=== PATIENT | female | born 1930 | race African-American/Black ===

== ENCOUNTER 2019-04-26 19:34 | Inpatient (IN) ==
[2019-04-26 20:15] LABS: BASO# 0.02 X1000 (0.0-0.2); BASO% 0.2 % (0.0-0.8); EOS# 0.48 X1000 (0.0-0.7); HEMATOCRIT 41.1 % (37.0-47.0); HEMOGLOBIN 12.8 g/dL (12.0-16.0); IMM GRAN# 0.03 X1000 (0.0-0.04); IMM GRAN% 0.4 % (0.0-0.5); LYMPH# 1.19 X1000 (1.2-3.4); LYMPH% 14.8 % (20.5-51.1); MCH 29.6 PG (27-31); MCHC 31.1 g/dL (33-37); MCV 94.9 FL (81-99); MONO# 0.78 X1000 (0.11-0.59); MONO% 9.7 % (1.7-9.3); MPV 11.2 FL (7.4-10.4); NEUT# 5.56 X1000 (1.4-6.5); NEUT% 68.9 % (42.2-75.2); PLT 233 X1000 (130-400); RBC 4.33 XMIL (4.2-5.4); RDW 13.5 % (11.5-14.5); WBC 8.06 X1000 (4.8-10.8)
[2019-04-26] MEDS ORDERED: DUONEB (A & A) INH ONE ×2 (20:28→23:59)
[2019-04-26 20:41] LABS: URINE SOURCE CATH
[2019-04-26 20:47] LABS: UR EPITHELIAL CELLS <10 /HPF (<10); URINE BACTERIA NEGATIVE /HPF; URINE RBC <10 /HPF (<10); URINE WBC <10 /HPF (<10)
[2019-04-26 20:48] LABS: AGAP 10; ALBUMIN 3.5 g/dL (3.5-5.0); ALKALINE PHOSPHATASE 60 U/L (32-104); BUN 11 mg/dL (8-22); CALCIUM 9.7 mg/dL (8.8-10.2); CHLORIDE 102 mmol/L (98-107); COSMO 283; CREATININE 0.8 mg/dL (0.5-0.9); ESTIMATED GFR > 60; GLUCOSE 115 mg/dL (70-104); GOT 19 U/L (10-30); GPT 10 U/L (10-36); POTASSIUM 4.3 mmol/L (3.5-5.1); SODIUM 142 mmol/L (136-145); TCO2 30 mmol/L (25-35); TOTAL PROTEIN 6.9 g/dL (6.3-8.3)
[2019-04-26 21:00] LABS: BILIRUBIN URINE NEGATIVE (NEGATIVE); BLOOD URINE NEGATIVE (NEGATIVE); COLOR YELLOW; GLUCOSE URINE NEGATIVE (NEGATIVE); KETONE URINE NEGATIVE (NEGATIVE); LEUKOCYTES URINE NEGATIVE (NEGATIVE); NITRITE URINE NEGATIVE (NEGATIVE); PH URINE 5.5; PROTEIN URINE NEGATIVE (NEGATIVE); SP GRAVITY URINE 1.019; TURBIDITY URINE CLEAR (CLEAR); UROBILINOGEN URINE NORMAL (NORMAL)
--- NOTE | 2019-04-26 21:12 | EKG Report ---
Test Performed on : 04/26/2019 9:13:32 PM Test Reason : cough, hemoptysis. Blood Pressure : / mmHG Vent. Rate : 104 BPM Atrial Rate : 104 BPM P-R Int : 138 ms QRS Dur : 068 ms QT Int : 360 ms P-R-T Axes : 032 043 045 degrees QTc Int : 473 ms Sinus tachycardia. Low voltage QRS Borderline ECG No previous ECGs available Unconfirmed Result
--- NOTE | 2019-04-26 21:47 | Diag Imaging Result Doc PS360 ---
EXAM: CHEST-1 VIEW INDICATION: cough, hemoptysis TECHNIQUE: One view COMPARISON: 04/08/2019 FINDINGS: There is stable mild interstitial thickening at the upper lung zones and the right lung base, possibly chronic. There is no discrete pleural fluid collection or pneumothorax. The cardiomediastinal silhouette and central vasculature are grossly unremarkable. IMPRESSION: Stable mild interstitial thickening bilaterally. Electronically signed by August Dutton 04/26/2019 9:45 PM
--- NOTE | 2019-04-26 22:23 | Diag Imaging Result Doc PS360 ---
EXAM: CT HEAD W/O CONTRAST INDICATION: recent bleed. dec loc. TECHNIQUE: This exam was performed using automated exposure control, adjustment of mA or kV according to patient size, and/or use of iterative reconstruction technique. COMPARISON: 04/08/2019 FINDINGS: There is an aging subacute left frontal lobe parenchymal hematoma. The amount of acute blood has decreased since the previous study. However, there is slightly more associated vasogenic edema causing sulcal effacement and minimal effacement of the anterior horn of the left lateral ventricle. There is no hydrocephalus. There is no significant midline shift. No discrete intracranial mass is identified. The surrounding soft tissues and bony structures are essentially unremarkable. IMPRESSION: Aging subacute left frontal lobe parenchymal hematoma. Although there is less hyperdense blood as compared to the previous study, there is slightly more associated surrounding vasogenic edema. Electronically signed by August Dutton 04/26/2019 10:20 PM
[2019-04-27] MEDS ORDERED: LEVAQUIN 750 MG/D5W 750 MG/150 ML IVPB IV ONE (00:02)
--- NOTE | 2019-04-27 00:06 | PROVIDER DOCUMENTATION ---
This chart was entered by Grecia Miranda Scribe, acting as scribe for Ashlyn Neely DO. HPI-General Adult - General Chief Complaint: Cough Stated Complaint: Coughing up Blood Time Seen by Provider: 04/26/19 19:46 Source: patient, family Allergies/Adverse Reactions: Patient Allergies Allergy/AdvReac Type Severity Reaction Status Date / Time No Known Allergies Allergy Verified 04/08/19 21:14 Home Medications: Home Medication List Medication Instructions Recorded Confirmed Last Taken Type Albuterol Sulfate [Ventolin Hfa] 60 puff INHALATION 3-4XDAY PRN PRN 04/08/19 04/26/19 Unknown History Brinzolamide/Brimonidine Tart 8 ml OPHTHALMIC (EYE) BID 04/08/19 04/26/19 Unknown History [Simbrinza 1%-0.2% Eye Drops] Olopatadine 0.2% Oph Solution 1 drp BOTH EYES DAILY 04/08/19 04/26/19 Unknown History [Pataday 0.2% Oph Solution] Travoprost [Travatan Z] 5 ml OPHTHALMIC (EYE) QHS 04/08/19 04/26/19 Unknown History Levetiracetam [Keppra] 500 mg PO BID 04/26/19 04/26/19 Unknown History Pantoprazole Sodium 40 mg PO DAILY 04/26/19 04/26/19 Unknown History - History of Present Illness -Gen Adult Nature of Presenting Problems: pt is a 88 yr old female presenting via EMS from snf with 1 day complaint of cough, chest pain, decreased responsiveness and blood tinged sputum. pt recently admitted at [facility] with subdural bleed, UTI and pneumonia, pt dx with lung cancer at that time Location of Pain/Injury: reports: chest Pain Radiation: reports: no radiation Severity: reports: mild Onset/Duration: reports: last night Timing: reports: still present Context/Activities at Onset: reports: light activity Modifying Factors: improves with: nothing Associated Symptoms: reports: chest pain, cough, fatigue, shortness of breath, weakness. denies: fever/chills, headaches, sinus congestion/drainage, nausea Similar Symptoms Previously?: Yes Recently seen or treated by another doctor?: Yes Review of Systems - Adult - REVIEW OF SYSTEMS - ADULT Constitutional: denies: chills, fever Eyes: reports: no symptoms reported Ears, Nose, Mouth & Throat: reports: no symptoms reported Cardiovascular: reports: chest pain. denies: palpitations, syncope Respiratory: reports: cough, hemoptysis, shortness of breath, wheezing Gastrointestinal: denies: diarrhea, nausea, vomiting Genitourinary: reports: no symptoms reported Musculoskeletal: denies: back pain Integumentary: reports: no symptoms reported Neurological: denies: dizziness/vertigo, headache/migraines, syncope Psychiatric: reports: no symptoms reported Endocrine: reports: no symptoms reported Hematologic/Lymphatic: reports: no symptoms reported Allergic/Immunologic: reports: no symptoms reported All Other Systems: Reviewed and Negative Past History - Adult - PAST MEDICAL HISTORY-ADULT Review of Records: reports: Old Records Reviewed, Nursing Assessment Review, Medications Reviewed, Social history reviewed & non-contributory. Major Childhood Illnesses: reports: denies history Cardiovascular: reports: denies history Respiratory: reports: denies history Gastrointestinal: reports: denies history Obstetrical/Gynecological: reports: denies history Genitourinary: reports: denies history Musculoskeletal: reports: denies history Neurological: reports: denies history Endocrine/Immune: reports: denies history Other Conditions: reports: denies history - IMMUNIZATION STATUS Childhood Immunizations: See Nurse Assessment Flu Vaccine: See Nurse Assessment - FAMILY HISTORY Family History: reviewed, not pertinent - SOCIAL HISTORY Smoking: non-smoker Substance Use: denies Living Situation: care facility Physical Exam-General - PHYSICAL EXAM-ADULT Initial Vital Signs Reviewed: Yes - CONSTITUTIONAL General Appearance: no apparent distress, other (sommulent, easily aroused) - EYES Eyes: PERRL/EOMI - HEAD, EARS, NOSE, MOUTH & THROAT HENMT: normocephalic/atraumatic, moist mucous membranes - NECK Neck: non-tender, full range of motion, supple, normal inspection - RESPIRATORY Respiratory: chest non-tender, decreased breath sounds (bilaterally), wheezing (diffuse) - CARDIOVASCULAR Cardiovascular: normal peripheral pulses, tachycardia - GASTROINTESTINAL (ABDOMEN) Abdominal Exam: normal bowel sounds, non tender, soft - LYMPHATIC Lymphatic: no adenopathy - MUSCULOSKELETAL Back Exam: normal inspection, no CVA tenderness, no vertebral tenderness Extremity: normal range of motion, non-tender, normal gait, normal inspection - SKIN Integumentary: normal color, normal turgor, warm/dry - NEUROLOGIC Neurologic: grossly normal, no motor/sensory deficits - PSYCHIATRIC Psych/Mental Status: normal mood/affect Progress - PLAN OF CARE/RESULTS Progress/Plan/Lab Results: Vital Signs - 8 hr 04/26/19 19:44 Temperature 99.1 F Pulse Rate 110 H Respiratory Rate 26 H Blood Pressure 119/72 O2 Sat by Pulse Oximetry 94 L Laboratory Results - last 24 hr 04/26/19 20:04 WBC 8.06 RBC 4.33 Hgb 12.8 Hct 41.1 MCV 94.9 MCH 29.6 MCHC 31.1 L RDW Std Deviation 13.5 Plt Count 233 MPV 11.2 H Immature Gran % (Auto) 0.4 Neut % (Auto) 68.9 Lymph % (Auto) 14.8 L [place] % (Auto) 9.7 H Eos % (Auto) 6.0 Baso % (Auto) 0.2 Immature Gran # (Auto) 0.03 Neut # (Auto) 5.56 Lymph # (Auto) 1.19 L [place] # (Auto) 0.78 H Eos # (Auto) 0.48 Baso # (Auto) 0.02 Orders Category Date Time Status CHEST-1 VIEW [RAD] Stat Exams 04/26/19 19:56 Ordered BLOOD CULTURE [BLDCUL] Stat Lab 04/26/19 19:56 Uncollected CBC WITH ELECTRONIC DIFF [HEME] Stat Lab 04/26/19 20:04 Completed COMPREHENSIVE METABOLIC PANEL [CHEM] Stat Lab 04/26/19 20:04 Received LACTATE, PLASMA [CHEM] Stat Lab 04/26/19 20:04 Received PRO B-NATRIURETIC PEPTIDE Stat Lab 04/26/19 20:04 Received TROPONIN T Stat Lab 04/26/19 20:04 Received UA NIMS W/REFLEX CULT [URINALYSIS] Stat Lab 04/26/19 19:58 Uncollected EKG [EKG] Stat Ther 04/26/19 19:56 Ordered Clinically stable under my care. Considerations include but not limited to: PNA, PE, worsening lung CA. Due to her recent SDH a CT head was obtained. There does not appear to be increased size of the hemorrhage, but possible increased edema since her original CT here. She spend a significant amt of time inpatient at [facility] prior to rehab and it was during that visit that her lung CA was diagnosed. The pt and her family wish to proceed aggressively with treatment of her lung CA at this point. We discussed admission vs discharge on oral abx. They prefer admission. She was treated with Levaquin for healthcare associated PNA. Admitted to hospitalist service, Dr Barajas. CT findings consistent with possible pna B. She has multiple malignant lesions bilaterally. Result Diagrams: 04/26/19 20:04 04/26/19 20:04 - EKG 1 Time of EKG reading by physician:: 21:13 EKG Read and Signed by:: Ashlyn Neely EKG Interpretation (*Must complete 3 of following elements*): Normal Rate: 104 Rhythm: sinus tach [place]: normal QRS: other (low voltage QRS) VA Interval: normal ST Wave: normal Departure - Departure Date of Disposition Decision: 04/26/19 Time of Disposition Decision: 23:59 DIAGNOSIS: Chronic subdural hematoma, Cough with hemoptysis Lung cancer Qualifiers: Laterality: unspecified laterality Lung location: unspecified part of lung Qualified Code(s): C34.90 - Malignant neoplasm of unspecified part of unspecified bronchus or lung Pneumonia Qualifiers: Pneumonia type: due to unspecified organism Laterality: unspecified laterality Lung location: unspecified part of lung Qualified Code(s): J18.9 - Pneumonia, unspecified organism Disposition: ADMITTED INPATIENT 09 Certified Medical Emergency: Emergent Condition: Fair - Critical Care Note This patient required my direct & personal management of CC.: No Attestation - Physician/ ADARSH Attestation The physician spent face to face time with patient:: Yes Advanced Practice Provider documentation review:: Supervising physician onsite and consulted in the evaluation and care of this patient. The physician did have a face to face encounter with the patient. This chart was documented by the indicated scribe, (Grecia Miranda Scribe) and accurately reflects the services I performed and decisions made by me, Ashlyn Neely, DO, as attested by the provider's signature.
--- NOTE | 2019-04-27 07:55 | Diag Imaging Result Doc PS360 ---
EXAM: CT ANGIOGRAM PULMONARY ARTERIES - 04/26/2019 HISTORY: difficulty breathing, left arm swollen TECHNIQUE: CT angiogram pulmonary arteries with intravenous contrast. Axial, 2-D coronal MIP, and 3-D MIP images are obtained. COMPARISON: 04/26/2019 chest radiograph FINDINGS: There are no filling defects identified in the pulmonary arteries. There is no indication of aortic dissection. There is tortuosity of the descending aorta noted. There is approximately 3.5 x 1.9 cm in axial dimensions soft tissue mass with spiculated margins at the suprahilar left upper lobe. This extends to the superior left hilum and abuts the major fissure. There are scattered subcentimeter nodular lesions bilaterally. These findings are suspicious for malignancy. There is a tiny right pleural effusion. There are some bronchial wall thickening which may relate to proctitis. There is no consolidation or pneumothorax identified. There are no abnormally enlarged mediastinal lymph nodes identified. IMPRESSION: No evidence of pulmonary embolism. Spiculated left upper lobe mass which is suspicious for malignancy. Scattered small pulmonary nodules which are suspicious for metastases. Possible bronchitis. No discrete pneumonia. The on-call radiologist provided preliminary results at 11:09 PM on 04/26/2019. Electronically signed by Kannan Beaulieu 04/27/2019 7:53 AM
[2019-04-27] MEDS ORDERED: SALINE LOCK IV FLUID XX ONE (09:20)
[2019-04-27] MEDS ORDERED: ZOFRAN IV PRN (09:20)
[2019-04-27] MEDS ORDERED: DUONEB (A & A) INH PRN (09:23)
[2019-04-27] MEDS: DUONEB (A & A) INH SCH ×3 (10:54→19:54)
[2019-04-27 12:04] LABS: URINE SOURCE CATH
[2019-04-27 12:06] LABS: BILIRUBIN URINE NEGATIVE (NEGATIVE); BLOOD URINE NEGATIVE (NEGATIVE); COLOR YELLOW; GLUCOSE URINE NEGATIVE (NEGATIVE); KETONE URINE NEGATIVE (NEGATIVE); LEUKOCYTES URINE NEGATIVE (NEGATIVE); NITRITE URINE NEGATIVE (NEGATIVE); PROTEIN URINE TRACE mg/dL (NEGATIVE); TURBIDITY URINE CLEAR (CLEAR); UROBILINOGEN URINE NORMAL (NORMAL)
[2019-04-27 12:07] LABS: UR EPITHELIAL CELLS <10 /HPF (<10); URINE BACTERIA NEGATIVE /HPF; URINE RBC <10 /HPF (<10); URINE WBC <10 /HPF (<10)
[2019-04-27 12:41] LABS: SP GRAVITY URINE > 1.050
--- NOTE | 2019-04-27 13:36 | HISTORY AND PHYSICAL ---
HISTORY OF PRESENT ILLNESS: Patient presented to the hospital with increased cough, congestion, and some hemoptysis. She apparently was in the hospital from April 08 and just discharged on the to rehab from [facility] where she had a subdural hematoma. She was also diagnosed with lung cancer but has not received any treatment for this. PLAN: We are going to admit her to the hospital, place her on antibiotics, oxygen, breathing treatments and will follow. Certainly do not expect that she is currently strong enough nor will she likely become strong enough to attempt to treat her new diagnosis of lung cancer. cc: Renard Barajas MD
--- NOTE | 2019-04-27 14:27 | HISTORY AND PHYSICAL ---
PRIMARY CARE PROVIDER: Dr. Richard Vides. CHIEF COMPLAINT: Cough and shortness of breath. HISTORY OF PRESENT ILLNESS: Ms. 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 This was diagnosed at the [facility]. She was also diagnosed with bilateral pneumonia and a UTI. She was transferred to [facility] where she was found to have lung cancer as well. She was discharged from [facility] on the 20 of April and sent to [facility]. She reported 2 days ago she started experiencing some shortness of breath, a low-grade temp, and was having some blood tinged sputum, but no chills. No nausea, vomiting, diarrhea, constipation, chest pain, palpitations. They report they were supposed to meet with a team at [facility] to discuss their options as far as the lung cancer on Thursday. The original plan was for her to go to rehab to get stronger. She has expressed her wishes now to be a DNR level 1 at this time. Workup in the ED with a chest x-ray showed stable mild interstitial thickening bilaterally. Head CT showed an aging subacute left frontal lobe parenchymal hematoma. Pulmonary arteriogram showed no evidence of PE, but a spiculated left upper lobe mass suspicious for malignancy and scattered small pulmonary nodules suspicious for metastasis and possible bronchitis, but no discrete pneumonia. She is afebrile. Her white count is 8. Lactates are negative. Urinalysis is negative. We will admit her to the hospital and treat her for bronchitis with a palliative care consult and place an order for a DNR level 1 per patient and daughter's request at the bedside. PAST MEDICAL HISTORY: 1. Arthritis. 2. Glaucoma. 3. Asthma. 4. Hypertension. 5. Recent subdural brain bleed. PAST SURGICAL HISTORY: Eye surgery. ALLERGIES: No known drug allergies. SOCIAL HISTORY: She has a supportive daughter at bedside. She does have a granddaughter who I believe with her previous main caregiver and helps her make all of her decisions. No alcohol, tobacco, or illicit drug use. However, she was exposed to secondhand smoke. REVIEW OF SYSTEMS: Twelve-point review of systems completely negative except for those mentioned in HPI. FAMILY HISTORY: Reviewed and noncontributory. PHYSICAL EXAMINATION: VITAL SIGNS: Temperature is 98.4 degrees, heart rate 108, respirations 16, blood pressure 118/69, O2 is 100% on 1 L nasal cannula. GENERAL: Ms. Pacheco is an 88-year-old female who is lying in the bed on her left side, in no acute distress. HEENT: Atraumatic, normocephalic. PERRL. NECK: Supple. Trachea midline. CARDIOVASCULAR: S1, S2 appreciated. No murmurs, gallops, rubs noted. RESPIRATORY: Lung sounds clear bilaterally. Bilaterally decreased in the bases. GI: Soft, nontender, nondistended. Positive bowel sounds 4 quadrants. EXTREMITIES: Lower extremities were negative for edema. NEUROLOGIC: No focal deficits noted. She is awake, alert, oriented. Follows commands. Moves all extremities. Answers all questions appropriately. DIAGNOSTIC DATA: Chest x-ray: Stable mild interstitial thickening bilaterally. Head CT: Aging subacute left frontal lobe parenchymal hematoma. Pulmonary arteriogram: No evidence of PE. Spiculated left upper lobe mass which is suspicious for malignancy. Scattered small pulmonary nodules which are suspicious for metastasis. EKG: Sinus tachycardia. LABORATORY DATA: White count 6, hemoglobin and hematocrit 12 and 41, platelet count is 233,000. Sodium 142, potassium 4.3, BUN 11, creatinine 0.8, blood glucose is 115. Troponin less than 0.010. Plasma lactate 1.2. Urinalysis is negative for bacteria, negative for nitrites. IMPRESSIONS AND PLAN: 1. Bronchitis with mild asthma exacerbation. The patient has responded to breathing treatments and supplemental O2. We will continue with p.o. azithromycin, bronchodilators, and aggressive pulmonary toilet. 2. Recent diagnosis of a subdural hematoma that was treated at [facility] that is still present. The patient was discharged to [facility] on the . 3. Recent diagnosis of metastatic lung cancer. The patient is still undecided if she will even seek treatment. She does request to be a DNR level 1. 4. Hypertension. Will continue home medications. 5. Arthritis. 6. Glaucoma. Continue eye drops. 7. Code status. DNR level 1. Palliative Care has been consulted to discuss goals of care and portable DNR. Dictated by VAISHNAVI Ruano for Renard Barajas MD cc: Renard Barajas MD
[2019-04-27] MEDS ORDERED: NS 500 ML IV ONE (15:55)
[2019-04-27] MEDS ORDERED: VANCOMYCIN IV PER PHARMACY MISC SCH (18:30)
[2019-04-27] MEDS ORDERED: VANCOMYCIN 1 GM/NS 1 GM/250 ML IVPB IV ONE (19:00)
[2019-04-27] MEDS: TRAVATAN 0.004% OPH SOLN RIGHT EYE SCH (20:19)
[2019-04-27] MEDS: KEPPRA PO SCH (20:19)
[2019-04-27] MEDS: NON-FORMULARY BULK MED OPH SCH (20:20)
[2019-04-28] MEDS ORDERED: CALMOSEPTINE OINTMENT TOP PRN (00:44)
[2019-04-28] MEDS: DUONEB (A & A) INH SCH ×7 (03:08→23:45)
--- NOTE | 2019-04-28 05:58 | Diag Imaging Result Doc PS360 ---
EXAM: CHEST-PORTABLE HISTORY: short of breath TECHNIQUE: Single view COMPARISON: 04/26/2019 FINDINGS: Poor inspiratory effort. No cardiomegaly. No pleural effusions identified. Stable left suprahilar mass. No consolidation. IMPRESSION: Stable exam Electronically signed by Alfonso Huynh 04/28/2019 5:56 AM
[2019-04-28] MEDS: PROTONIX PO SCH (06:09)
[2019-04-28 06:31] LABS: BASO# 0.02 X1000 (0.0-0.2); BASO% 0.3 % (0.0-0.8); EOS# 0.34 X1000 (0.0-0.7); EOS% 5.8 % (0.0-10.0); HEMATOCRIT 36.8 % (37.0-47.0); IMM GRAN# 0.02 X1000 (0.0-0.04); IMM GRAN% 0.3 % (0.0-0.5); LYMPH# 1.23 X1000 (1.2-3.4); LYMPH% 20.9 % (20.5-51.1); MCH 28.9 PG (27-31); MCHC 29.9 g/dL (33-37); MCV 96.6 FL (81-99); MONO# 0.76 X1000 (0.11-0.59); MONO% 12.9 % (1.7-9.3); MPV 11.2 FL (7.4-10.4); NEUT# 3.52 X1000 (1.4-6.5); NEUT% 59.8 % (42.2-75.2); PLT 198 X1000 (130-400); RBC 3.81 XMIL (4.2-5.4); RDW 13.3 % (11.5-14.5); WBC 5.89 X1000 (4.8-10.8)
[2019-04-28 07:17] LABS: AGAP 9; ALKALINE PHOSPHATASE 51 U/L (32-104); BUN 10 mg/dL (8-22); CALCIUM 9.6 mg/dL (8.8-10.2); CHLORIDE 106 mmol/L (98-107); COSMO 286; CREATININE 0.5 mg/dL (0.5-0.9); ESTIMATED GFR > 60; GLUCOSE 93 mg/dL (70-104); GOT 15 U/L (10-30); GPT 8 U/L (10-36); POTASSIUM 3.4 mmol/L (3.5-5.1); SODIUM 144 mmol/L (136-145); TCO2 30 mmol/L (25-35)
[2019-04-28] MEDS: NON-FORMULARY BULK MED OPH SCH ×2 (08:28→20:53)
[2019-04-28] MEDS: PATADAY 0.2% OPH SOLUTION BOTH EYES SCH (08:28)
[2019-04-28] MEDS: ZITHROMAX PO SCH (08:29)
[2019-04-28] MEDS: KEPPRA PO SCH ×2 (08:29→20:52)
--- NOTE | 2019-04-28 15:51 | PROGRESS NOTE ---
DATE: 04/28/2019 SUBJECTIVE: Patient notes that she is feeling a little bit better. Denies any coughing or congestion currently. Daughter states that she is breathing a little bit easier. PHYSICAL EXAMINATION: Temperature 98.2, pulse 50, respiratory rate 18, BP 104/59. General: Patient is in no current respiratory distress. HEENT: Normocephalic. Neck: Supple. Cardiovascular Examination: Regular rate. Chest: Clear. Abdomen: Soft. Extremities: Moves all extremities. ASSESSMENT: 1. Bronchitis with mild asthma exacerbation, improving. 2. Recent diagnosis of subdural hematoma treated at [facility]. 3. Recent diagnosis of metastatic lung cancer. 4. Do Not Resuscitate. 5. Hypertension. 6. Arthritis. 7. Gram-positive cocci in her blood. 8. Hypokalemia. PLAN: We are going to continue patient in the hospital. Antibiotics, we will add vancomycin to her current regimen, and we will follow. cc: Renard Barajas MD
[2019-04-28] MEDS: TRAVATAN 0.004% OPH SOLN RIGHT EYE SCH (20:53)
[2019-04-29] MEDS: TYLENOL PO PRN (02:52)
[2019-04-29] MEDS: DUONEB (A & A) INH SCH ×6 (03:27→23:06)
[2019-04-29] MEDS: PROTONIX PO SCH (06:12)
[2019-04-29] MEDS: ZITHROMAX PO SCH (08:31)
[2019-04-29] MEDS: VANCOMYCIN 1 GM/NS 1 GM/250 ML IVPB IV SCH (08:31)
[2019-04-29] MEDS: NON-FORMULARY BULK MED OPH SCH ×2 (08:31→21:17)
[2019-04-29] MEDS: KEPPRA PO SCH ×2 (08:31→21:16)
[2019-04-29] MEDS: PATADAY 0.2% OPH SOLUTION BOTH EYES SCH (08:32)
--- NOTE | 2019-04-29 15:50 | PROGRESS NOTE ---
DATE: 04/29/2019 SUBJECTIVE: Patient herself says that she is starting to feel a little bit better. Denies any fevers or chills. Denies any worsening of her cough or congestion. She is still having a mildly productive cough, but overall notes she is feeling better. PHYSICAL EXAMINATION: Vital Signs: Temperature 98.7 degrees, pulse 97, respiratory rate 18, BP 116/62. General: Patient is pleasant, lying in the bed with the head propped up about 30 degrees. She is in no respiratory distress. HEENT: Normocephalic. Neck: Supple. Cardiovascular: Regular rate. Chest: Positive mild rhonchi throughout. No wheezing. No crackles. Abdomen: Soft, nondistended. Extremities: Moves all extremities. ASSESSMENT: 1. Sepsis secondary to bacteremia. 2. Bacteremia from Enterococcus sensitive to vancomycin. 3. Hypokalemia. 4. Acute bronchitis. 5. Recent subdural hematoma. 6. Recent diagnosis of lung cancer that has not been treated yet. 7. Hypertension. 8. Arthritis. 9. Glaucoma. PLAN: We are going to continue patient in the hospital. Continue vancomycin. Recheck blood culture in the a.m., and once negative can begin deciding on discharge planning. cc: Renard Barajas MD
[2019-04-29] MEDS: TRAVATAN 0.004% OPH SOLN RIGHT EYE SCH (21:16)
[2019-04-30] MEDS: DUONEB (A & A) INH SCH ×6 (02:42→23:23)
[2019-04-30 06:54] LABS: HEMATOCRIT 36.9 % (37.0-47.0); HEMOGLOBIN 11.3 g/dL (12.0-16.0); MCH 29.4 PG (27-31); MCHC 30.6 g/dL (33-37); MCV 96.1 FL (81-99); MPV 11.8 FL (7.4-10.4); RBC 3.84 XMIL (4.2-5.4); RDW 13.3 % (11.5-14.5); WBC 5.79 X1000 (4.8-10.8)
[2019-04-30] MEDS: PROTONIX PO SCH (07:14)
[2019-04-30 07:15] LABS: AGAP 9; ALBUMIN 3.2 g/dL (3.5-5.0); ALKALINE PHOSPHATASE 53 U/L (32-104); BUN 7 mg/dL (8-22); CALCIUM 9.6 mg/dL (8.8-10.2); CHLORIDE 102 mmol/L (98-107); COSMO 281; CREATININE 0.5 mg/dL (0.5-0.9); ESTIMATED GFR > 60; GLUCOSE 96 mg/dL (70-104); GOT 17 U/L (10-30); GPT 9 U/L (10-36); MAGNESIUM 2.1 mg/dL (1.5-2.7); POTASSIUM 3.5 mmol/L (3.5-5.1); SODIUM 142 mmol/L (136-145); TCO2 31 mmol/L (25-35); TOTAL PROTEIN 6.3 g/dL (6.3-8.3)
[2019-04-30] MEDS: ZITHROMAX PO SCH (08:07)
[2019-04-30] MEDS: KEPPRA PO SCH ×2 (08:07→21:50)
[2019-04-30] MEDS: PATADAY 0.2% OPH SOLUTION BOTH EYES SCH (08:08)
[2019-04-30] MEDS: NON-FORMULARY BULK MED OPH SCH ×2 (08:08→21:50)
--- NOTE | 2019-04-30 12:43 | PROGRESS NOTE ---
DATE: 04/30/2019 SUBJECTIVE: Patient herself is pleasant. She is in no distress. She has no complaints. The family does note that at times she has shortness of breath. EXAM: 98.7 degrees, pulse 95, respiratory rate 18, BP 116/62.General: Patient is very pleasant. She is in no respiratory distress currently. HEENT: Normocephalic. Neck: Supple. Cardiovascular: Regular rate. Chest: Decreased but equal. Rhonchi on the right have improved. Abdomen: Soft, nondistended. Extremities: Moves all extremities. ASSESSMENT: 1. Sepsis. 2. Bacteremia with enterococcus sensitive to vancomycin. Repeat culture pending. 3. Hypokalemia, resolved. 4. Recent subdural hematoma, stable. 5. Recent diagnosis of metastatic lung cancer. PLAN: We will continue patient in the hospital. Continue antibiotics until culture is negative and then can rediscuss transition to rehab. cc: Renard Barajas MD
[2019-04-30] MEDS: VANCOMYCIN 1 GM/NS 1 GM/250 ML IVPB IV SCH (21:49)
[2019-04-30] MEDS: TRAVATAN 0.004% OPH SOLN RIGHT EYE SCH (21:51)
[2019-05-01] MEDS: DUONEB (A & A) INH SCH ×6 (03:29→23:19)
[2019-05-01] MEDS: PROTONIX PO SCH (06:06)
[2019-05-01] MEDS: KEPPRA PO SCH ×2 (08:45→21:40)
[2019-05-01] MEDS: PATADAY 0.2% OPH SOLUTION BOTH EYES SCH (08:45)
[2019-05-01] MEDS: ZITHROMAX PO SCH (08:45)
[2019-05-01] MEDS: NON-FORMULARY BULK MED OPH SCH ×2 (08:45→21:40)
[2019-05-01] MEDS ORDERED: ASPERCREME TOP PRN (10:24)
[2019-05-01] MEDS: TYLENOL PO PRN (10:40)
--- NOTE | 2019-05-01 13:28 | PROGRESS NOTE ---
DATE: 05/01/2019 SUBJECTIVE: The patient has no new complaints. Family notes that she seems to be feeling better. PHYSICAL EXAMINATION: Vital Signs: Temperature 98.3, pulse 88, respiratory rate 18, BP 116/59. General: The patient is awake. Currently in no respiratory distress. HEENT: Normocephalic. Neck: Supple. Cardiovascular: Regular rate. Chest: Clear. No crackles. No wheezing. Abdomen: Soft, nondistended. Extremities: Moves all extremities. ASSESSMENT: 1. Enterococcus bacteremia. Repeat culture is pending. 2. Bronchitis, stable. 3. Recent subdural hematoma, stable. 4. Recent diagnosis of metastatic lung cancer without current treatment. 5. DO NOT RESUSCITATE level 1. 6. Hypertension. PLAN: Will continue the patient in the hospital. Continue vancomycin until her cultures are negative. At that point, we will get [employer] involved with transitioning back to rehab. cc: Renard Barajas MD
[2019-05-01] MEDS: TRAVATAN 0.004% OPH SOLN RIGHT EYE SCH (21:40)
[2019-05-01] MEDS ORDERED: AFRIN NASAL SPRAY NAS PRN (22:24)
[2019-05-02] MEDS: DUONEB (A & A) INH SCH ×6 (03:29→23:18)
[2019-05-02] MEDS: PROTONIX PO SCH (06:13)
[2019-05-02] MEDS ORDERED: VANCOMYCIN 1 GM/NS 1 GM/250 ML IVPB IV SCH (08:00)
[2019-05-02] MEDS: ZITHROMAX PO SCH (08:32)
[2019-05-02] MEDS: KEPPRA PO SCH ×2 (08:32→21:34)
[2019-05-02] MEDS: NON-FORMULARY BULK MED OPH SCH ×2 (08:33→21:34)
[2019-05-02] MEDS: PATADAY 0.2% OPH SOLUTION BOTH EYES SCH (08:33)
[2019-05-02 13:09] LABS: INR 1.04; PROTIME 14.1 Seconds (11.0-16.0)
[2019-05-02] MEDS ORDERED: NS 250 ML ONE (13:55)
[2019-05-02] MEDS: TYLENOL PO PRN (21:34)
[2019-05-02] MEDS: TRAVATAN 0.004% OPH SOLN RIGHT EYE SCH (21:35)
--- NOTE | 2019-05-03 01:10 | PROGRESS NOTE ---
DATE: 05/02/2019 SUBJECTIVE: The patient herself has no complaints. OBJECTIVE: Vital Signs: Temperature 98.7 degrees, pulse 95, respiratory rate 18, blood pressure 133/70. General: The patient is pleasant. She is in no respiratory distress. HEENT: Normocephalic. Neck: Supple. Cardiovascular: Regular rate. Chest: Clear. Abdomen: Soft. Extremities: Moves all extremities. ASSESSMENT: 1. Enterococcus bacteremia. Currently her recent blood culture is negative, therefore we are going to attempt to get a PICC line. 2. Hypokalemia. Replaced. 3. Bronchitis. 4. Subdural hematoma, stable, chronic. 5. Metastatic lung cancer. The patient has not been able to receive treatment yet. 6. [id number] level 1. 7. Adult failure to thrive with generalized weakness. PLAN: We will continue the patient in the hospital, hopefully she can transition to rehabilitation today after her PICC hopefully in the morning. She will need antibiotics cc: Renard Barajas MD MTDD
[2019-05-03] MEDS: DUONEB (A & A) INH SCH ×3 (03:54→12:14)
[2019-05-03] MEDS: PROTONIX PO SCH (06:17)
[2019-05-03] MEDS: KEPPRA PO SCH (08:41)
[2019-05-03] MEDS: PATADAY 0.2% OPH SOLUTION BOTH EYES SCH (08:42)
[2019-05-03] MEDS: NON-FORMULARY BULK MED OPH SCH (08:42)
[2019-05-03] MEDS: ZITHROMAX PO SCH (08:42)
[2019-05-03 11:14] VITALS: BP 119/75
--- NOTE | 2019-05-03 11:24 | DISCHARGE SUMMARY ---
ADMISSION DATE: 04/27/2019 DISCHARGE DATE: 05/03/2019 PRIMARY CARE PHYSICIAN: Dr. Richard Vides. ADMISSION DIAGNOSES: 1. Bronchitis with a mild asthma exacerbation. 2. Recent diagnosis of subdural hematoma that was treated at [facility] and is still present. Had been discharged to [facility] on 04/20/2019. 3. Recent diagnosis of metastatic lung cancer. The patient is still undecided if she will even seek treatment, and requested to be a DO NOT RESUSCITATE level 1. 4. Hypertension. 5. Arthritis. 6. Glaucoma. DISCHARGE DIAGNOSES: 1. Enterococcus bacteremia with current blood cultures negative. 2. Bronchitis with a mild asthma exacerbation, improved. 3. Subdural hematoma, stable and chronic. 4. Metastatic lung cancer. The patient is still deciding on whether or not to receive treatment. 5. Adult failure to thrive with generalized weakness. 6. DO NOT RESUSCITATE 1. 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 Had been diagnosed also with bilateral pneumonia and a UTI. Was transferred to [facility], where she was found, at that time, to have lung cancer as well. Was discharged from [facility] 04/20/2019, and was sent to [facility]. Two days prior to arrival, she started experiencing shortness of breath, a low-grade temp, and some blood-tinged sputum, but no chills. No nausea, vomiting, diarrhea, or constipation. The family reports that they were supposed to meat with a team at [facility] to discuss their options as far as the lung cancer, on Thursday. Was to go to rehab to get stronger. Now expressed wishes to be a DO NOT RESUSCITATE level 1. Workup in the ED showed a chest x-ray with mild interstitial thickening bilaterally. Head CT showed an aging subacute left frontal lobe parenchymal hematoma. Pulmonary arteriogram showed no evidence of PE, but a spiculated left upper lobe mass suspicious for malignancy, and scattered small pulmonary nodules suspicious for metastasis, and possible bronchitis, but no discrete pneumonia was noted. White count was 8. Lactates were negative. Urinalysis was negative. She was admitted and treated for bronchitis. Was then found on her blood cultures to have a bacteremia of Enterococcus faecium, and has been being treated with IV antibiotics. Her second set of blood cultures have been negative. She obtained a PICC line yesterday, and it is now felt that she can safely be discharged back to rehab. DISCHARGE MEDICATIONS: Include Simbrinza 1%/0.2% ophthalmic drops b.i.d., Keppra 500 mg p.o. b.i.d., Pataday 0.2% ophthalmic solution 1 drop to both eyes daily, pantoprazole 40 mg p.o. daily, vancomycin 1 gram IV every 24 hours (#14 with no refills), Travoprost 5 mL ophthalmically at bedtime, Ventolin inhaler 3 to 4 times daily p.r.n. FOLLOWUP: She will follow up with her primary care physician once she completes her rehab stay. Family will set up another family meeting with [facility] once her rehab stay is completed, to discuss her treatment options for her newly-diagnosed lung cancer. All discharge instructions have been reviewed with the patient and family, and they verbalized understanding. TIME SPENT: A 35-minute discharge. Dictated by VAISHNAVI Carlos for Tommy Navarro MD cc: VAISHNAVI Carlos MD Wayne E. Thomas, MD
--- NOTE | 2019-05-03 11:27 | DISCHARGE SUMMARY ---
ADMISSION DATE: 04/27/2019 DISCHARGE DATE: ADDENDUM: DISCHARGE DIAGNOSIS: Enterococcal bacteremia, possibly associated with hospital exposure or intravenous exposure or possibly an old urinary tract infection, although she has no evidence of that at this point. In any case, she has a new diagnosis of lung cancer. She ended up having positive blood cultures for enterococcus faecium, two different species, fortunately both sensitive to vancomycin. She was maintained on that. Repeat blood cultures on 04/26/2019 and 04/30/2019 were negative. Sputum was negative, so she will be treated with 2 weeks of IV antibiotics. We will get an echo before discharge, just to make sure that there is no evidence of endocarditis. She may actually need a total of 4 weeks, but we will get 2 weeks, and then repeat blood cultures and follow. Discharge condition is stable. This is a [id number] encounter note with Anne Merrill. TIME SPENT: A 32-minute discharge. cc: Tommy Navarro MD
--- NOTE | 2019-05-03 16:25 | ECHO REPORT ---
ORDER DATE: 05/03/2019 INDICATION: Possible endocarditis. FINDINGS: 1. The right atrium appears normal in size at 2 cm. 2. Mild tricuspid regurgitation. RV systolic pressure of 44 mmHg. 3. Normal RV size and systolic function. 4. Trace pulmonic insufficiency. 5. Normal left atrial size with a dimension of 2.5 cm. 6. No mitral prolapse. Trace mitral regurgitation. No evidence of mitral stenosis. 7. Normal LV size, end-diastolic dimension of 3.7 cm. Normal wall thicknesses with a posterior and interventricular septal wall thickness of 0.8 and 0.9 cm respectively. Normal LV systolic function. Estimated EF of 60 to 65% percent with normal wall motion. 8. Aortic valve opens well. It is trileaflet. Do not see any significant degree of stenosis or insufficiency. 9. The aorta appears normal in visualized segments. 10. No pericardial effusion is identified. 11. There is no clear evidence of valvular vegetation on this study. If clinical suspicion is high, would recommend transesophageal echo. cc: MD Tommy Squires MD
== END 2019-05-03 14:18 | DRG 871 ==
LOC: P.ED 19:34 → P.MEDSURG 04-27 00:44 → SUATTDRO 04-27 00:44
PROVIDERS: ATTEND Internal Medicine